=== PATIENT | male | born 1960 | race African-American/Black ===

== ENCOUNTER 2017-03-09 20:08 | Emergency (ER) | payer OTHER ==
[~2017-03-09 20:08] MED LIST: AMLO10TA80 PO; CLON1TAB4 PO; DONE5TAB33 PO; PREDNISOLONE ACETATE OP; [UNRECOGNIZED DRUG - OTHER]; ciclopirox
== END 2017-03-09 22:22 | disposition left against medical advice (07) ==
LOC: ER 22:17
DX: R09.89 Other specified symptoms and signs involving the circulatory and respiratory systems (principal); Z53.21 Procedure and treatment not carried out due to patient leaving prior to being seen by health care provider

== ENCOUNTER 2018-08-28 20:39 | Inpatient (IN) | payer OTHER ==
[~2018-08-28] VITALS: Ht 167.6 cm; Wt 86.2 kg
[~2018-08-28 20:39] MED LIST changes: +ASPI-1158 PO; +CLON1TAB12 PO; -CLON1TAB4 PO; +METF-414 MT; +XALAO EACHEYE; -[UNRECOGNIZED DRUG - OTHER]; -ciclopirox
[2018-08-28 21:02] LABS: BASOPHILS % 1.4 % (0.0-2.0); EOSINOPHILS % 0.4 % (0.0-5.0); HEMATOCRIT. 47.3 % (42.0-52.0); HEMOGLOBIN. 15.7 g/dL (14.0-18.0); LYMPHOCYTES % 32.3 % (20.0-50.0); MEAN CORPUSCULAR HEMOGLOBIN 32.8 pg (28.0-32.0); MEAN CORPUSCULAR VOLUME 98.8 fL (80.0-94.0); MEAN PLATELET VOLUME 9.2 fl (7.4-10.4); MONOCYTES % 6.8 % (2.0-8.0); NEUTROPHILS % 59.1 % (40.0-76.0); PLATELET 221 x1000/uL (130-400); RED BLOOD CELL COUNT 4.79 mill/uL (4.7-6.1); RED CELL DISTRIBUTION WIDTH 13.8 % (11.6-14.6)
[2018-08-28 21:08] LABS: CHLORIDE 109 mEq/L (98-107)
[2018-08-28 21:09] LABS: PROTHROMBIN TIME 10.5 sec (9.6-11.0)
[2018-08-28 21:13] LABS: ETHANOL BLOOD < 10 mg/dL
[2018-08-28 21:16] LABS: LDL CHOLESTEROL 129 mg/dL (5-100)
[2018-08-28 21:52] LABS: CLARITY URINE CLEAR (CLEAR); COLOR URINE YELLOW (YELLOW); KETONES URINE TRACE (NEGATIVE); LEUKOCYTE ESTERASE URINE NEGATIVE (NEGATIVE); NITRITE URINE NEGATIVE (NEGATIVE); OCCULT BLOOD URINE NEGATIVE (NEGATIVE); PH URINE 5.5 (4.5-8.0); PROTEIN URINE NEGATIVE (NEGATIVE); SPECIFIC GRAVITY URINE 1.023 (1.005-1.030)
[2018-08-28 22:06] LABS: *COCAINE SCREEN URINE NEGATIVE (NEGATIVE); METHADONE URINE SCREEN NEGATIVE (NEGATIVE); OPIATES URINE SCREEN NEGATIVE (NEGATIVE)
[2018-08-28 22:07] LABS: *AMPHETAMINES SCREEN URINE NEGATIVE (NEGATIVE); *BARBITURATES SCREEN URINE NEGATIVE (NEGATIVE); *BENZODIAZEPINES SCREEN URINE NEGATIVE (NEGATIVE); CANNABINOID URINE SCREEN NEGATIVE (NEGATIVE); PHENCYCLIDINE URINE SCREEN NEGATIVE (NEGATIVE)
[2018-08-28] MEDS ORDERED: ASPIRIN 325MG EC TABLET PO ONE (22:45)
[2018-08-28] MEDS ORDERED: ONDANSETRON HCL 4MG/2ML INJ IV PRN (23:15)
[2018-08-28] MEDS ORDERED: ACETAMINOPHEN 325MG TABLET PO PRN (23:15)
[2018-08-28] MEDS ORDERED: DOCUSATE SODIUM 100MG CAPSULE PO PRN (23:15)
[2018-08-28] MEDS ORDERED: HYDROCODONE/ACETAMINOPHEN 5/325MG TABLET PO PRN (23:15)
[2018-08-29] VITALS (7 sets, daily range): BP systolic 109–134; BP diastolic 73–91
[2018-08-29] MEDS ORDERED: TAMS-11 PO (01:56)
[2018-08-29] MEDS ORDERED: DONE10TA11 PO (01:56)
[2018-08-29] MEDS ORDERED: TIMO1DRO2 OP (01:56)
[2018-08-29] MEDS ORDERED: LATA5DRO EACHEYE (01:56)
[2018-08-29] MEDS ORDERED: NEPT50 GT (01:56)
[2018-08-29] MEDS ORDERED: DEXTROSE 50% WATER 50ML SYRINGE IV PRN (02:15)
[2018-08-29] MEDS: INSULIN LISPRO 100 UNITS/ML SUBCUT SCH ×4 (05:58→20:47)
[2018-08-29] MEDS: BLOOD SUGAR DIAGNOSTIC STRIP TEST SCH ×4 (05:58→20:46)
[2018-08-29 06:25] LABS: BASOPHILS % 0.5 % (0.0-2.0); EOSINOPHILS % 1.3 % (0.0-5.0); HEMATOCRIT. 42.9 % (42.0-52.0); HEMOGLOBIN. 14.5 g/dL (14.0-18.0); LYMPHOCYTES % 44.5 % (20.0-50.0); MEAN CORPUSCULAR HEMOGLOBIN 33.5 pg (28.0-32.0); MEAN CORPUSCULAR VOLUME 98.9 fL (80.0-94.0); MEAN PLATELET VOLUME 9.6 fl (7.4-10.4); MONOCYTES % 10.6 % (2.0-8.0); NEUTROPHILS % 43.1 % (40.0-76.0); PLATELET 220 x1000/uL (130-400); RED BLOOD CELL COUNT 4.34 mill/uL (4.7-6.1); RED CELL DISTRIBUTION WIDTH 13.5 % (11.6-14.6)
[2018-08-29 07:01] LABS: CREATINE KINASE 84 IU/L (39-308)
[2018-08-29 07:02] LABS: CREATINE KINASE MB FRACTION 1.3 ng/mL (0.5-3.6)
[2018-08-29 07:16] LABS: CHLORIDE 109 mEq/L (98-107)
[2018-08-29 07:24] LABS: LDL CHOLESTEROL 127 mg/dL (5-100)
[2018-08-29 07:26] LABS: HDL CHOLESTEROL 42 mg/dL (40-59)
[2018-08-29] MEDS: ENOXAPARIN 40MG/0.4ML SYR SUBCUT SCH (08:49)
[2018-08-29 16:42] LABS: CREATINE KINASE 87 IU/L (39-308)
[2018-08-29 16:43] LABS: CREATINE KINASE MB FRACTION 1.1 ng/mL (0.5-3.6)
[2018-08-30] VITALS: BP 152/87
[2018-08-30 04:00] VITALS: BP 132/98
[2018-08-30] MEDS: BLOOD SUGAR DIAGNOSTIC STRIP TEST SCH ×3 (06:47→16:45)
[2018-08-30] MEDS: INSULIN LISPRO 100 UNITS/ML SUBCUT SCH ×3 (06:48→17:15)
[2018-08-30 08:00] VITALS: BP 120/84
[2018-08-30] MEDS: ENOXAPARIN 40MG/0.4ML SYR SUBCUT SCH (10:22)
[2018-08-30 12:00] VITALS: BP 125/86
[2018-08-30 15:24] LABS: BASOPHILS % 0.8 % (0.0-2.0); EOSINOPHILS % 0.8 % (0.0-5.0); HEMATOCRIT. 46.1 % (42.0-52.0); HEMOGLOBIN. 15.7 g/dL (14.0-18.0); LYMPHOCYTES % 35.4 % (20.0-50.0); MEAN CORPUSCULAR HEMOGLOBIN 33.2 pg (28.0-32.0); MEAN CORPUSCULAR VOLUME 97.4 fL (80.0-94.0); MONOCYTES % 12.1 % (2.0-8.0); NEUTROPHILS % 50.9 % (40.0-76.0); PLATELET 219 x1000/uL (130-400); RED BLOOD CELL COUNT 4.73 mill/uL (4.7-6.1); RED CELL DISTRIBUTION WIDTH 13.4 % (11.6-14.6)
[2018-08-30 15:28] LABS: CHLORIDE 108 mEq/L (98-107)
[2018-08-30 15:50] LABS: FOLIC ACID (FOLATE) SERUM 16.2 ng/mL (>5.38)
[2018-08-30 16:00] VITALS: BP 107/77
[2018-08-30 20:00] VITALS: BP 118/96
== END 2018-08-30 21:35 | disposition left against medical advice (07) | DRG 52 ==
LOC: ER 21:11 → ENRESERV 23:35 → 5WST 08-29 00:23
PROVIDERS: ADMIT Internal Medicine; ATTEND Internal Medicine
DX: G93.40 Encephalopathy, unspecified (principal); E11.39 Type 2 diabetes mellitus with other diabetic ophthalmic complication; Z53.21 Procedure and treatment not carried out due to patient leaving prior to being seen by health care provider; I10 Essential (primary) hypertension; H40.89 Other specified glaucoma; I69.351 Hemiplegia and hemiparesis following cerebral infarction affecting right dominant side; Z87.820 Personal history of traumatic brain injury; Z79.84 Long term (current) use of oral hypoglycemic drugs
CPT/HCPCS: 36415; 70551; 71045; 80048; 80061; 80305; 80320; 82550; 82553; 82607; 82746; 82962; 83721; 83735; 84443; 84484; 93005; 93970; 97162; 97166; 97530; 97535; 99291; J1650; G0480

== ENCOUNTER 2019-01-21 11:59 | Emergency (ER) | payer OTHER ==
[~2019-01-21] VITALS: Ht 177.8 cm; Wt 73.0 kg
[~2019-01-21 11:59] MED LIST changes: +DONE10TA11 PO; -DONE5TAB33 PO; +LATA5DRO EACHEYE; +NEPT50 GT; -PREDNISOLONE ACETATE OP; +TAMS-11 PO; +TIMO1DRO2 OP
[2019-01-21] MEDS ORDERED: SODIUM CHLORIDE 0.9% 1,000 ML IV ONE (12:51)
[2019-01-21 13:12] LABS: EOSINOPHILS % 5.2 % (0.0-5.0); HEMOGLOBIN. 15.2 g/dL (14.0-18.0); LYMPHOCYTES % 42.7 % (20.0-50.0); MEAN CORPUSCULAR HEMOGLOBIN 33.5 pg (28.0-32.0); MEAN CORPUSCULAR VOLUME 99.1 fL (80.0-94.0); MEAN PLATELET VOLUME 9.1 fl (7.4-10.4); MONOCYTES % 10.2 % (2.0-8.0); NEUTROPHILS % 40.9 % (40.0-76.0); PLATELET 213 x1000/uL (130-400); RED BLOOD CELL COUNT 4.54 mill/uL (4.7-6.1); RED CELL DISTRIBUTION WIDTH 13.7 % (11.6-14.6)
[2019-01-21 13:16] LABS: CHLORIDE 110 mEq/L (98-107)
[2019-01-21 13:27] LABS: PROTHROMBIN TIME 10.3 sec (9.6-11.0)
[2019-01-21] MEDS ORDERED: ASPIRIN 325MG EC TABLET PO ONE (14:30)
[2019-01-21 18:25] VITALS: BP 122/85
== END 2019-01-21 18:34 | disposition short-term general hospital (02) ==
LOC: ER 11:59
DX: I63.9 Cerebral infarction, unspecified (principal); I10 Essential (primary) hypertension; Z79.82 Long term (current) use of aspirin; Z79.899 Other long term (current) drug therapy
CPT/HCPCS: 36415; 70450; 71045; 80053; 82962; 83880; 84484; 85025; 85610; 85730; 86850; 86900; 86901; 93005; 99285; J7030

== ENCOUNTER 2023-09-19 11:40 | Emergency (ER) | payer OTHER ==
[~2023-09-19] VITALS: Ht 177.8 cm; Wt 82.0 kg
[~2023-09-19 11:40] MED LIST changes: -ASPI-1158 PO; +ASPI-1406 PO; +METH50TA6 GT; -NEPT50 GT
[2023-09-19 11:44] VITALS: O2SAT 98
[2023-09-19] MEDS: LEVETIRACETAM 1000MG PREMIX 100 ML IV ONE (12:23)
[2023-09-19 12:30] LABS: CALCIUM 9.2 mg/dL (8.7-10.4); CARBON DIOXIDE 22 mEq/L (21-32); CHLORIDE 109 mEq/L (98-107); POTASSIUM 3.9 mEq/L (3.5-5.1); SODIUM 138 mEq/L (136-145)
[2023-09-19 12:35] LABS: CREATININE 1.2 mg/dL (0.6-1.3); UREA NITROGEN BLOOD 9 mg/dL (9-23)
[2023-09-19 12:53] LABS: BASOPHILS % 0.2 % (0.0-2.0); DIFFERENTIAL COMMENT 0; EOSINOPHILS % 0.6 % (0.0-5.0); HEMATOCRIT. 51.6 % (42.0-52.0); HEMOGLOBIN. 16.3 g/dL (14.0-18.0); LYMPHOCYTES % 20.1 % (20.0-50.0); MEAN CORPUSCULAR HGB CONC 31.7 g/dL (31.0-37.0); MEAN PLATELET VOLUME 9.4 fl (7.4-10.4); MONOCYTES % 7.5 % (2.0-8.0); NEUTROPHILS % 71.6 % (40.0-76.0); PLATELET 176 x1000/uL (130-400); RED BLOOD CELL COUNT 4.96 mill/uL (4.7-6.1); WHITE BLOOD COUNT 8.2 x1000/uL (4.5-11.0)
[2023-09-19 13:04] LABS: GLUCOSE 241 mg/dL (70-105)
[2023-09-19 13:05] LABS: ETHANOL BLOOD < 10 mg/dL (<10)
[2023-09-19] MEDS: ONDANSETRON HCL 4MG/2ML INJ IV STA (14:12)
[2023-09-19 16:16] VITALS: BP 104/78; PULSE 71; RESP 16; TEMP 98.9
== END 2023-09-19 16:21 | disposition short-term general hospital (02) ==
LOC: ER 11:40 → EDBEDREQ 14:01 → EDBEDREQTM 14:01 → CANBEDREQ 14:51 → ER 16:21
DX: R56.9 Unspecified convulsions (principal); I10 Essential (primary) hypertension; Z79.899 Other long term (current) drug therapy; Z86.73 Personal history of transient ischemic attack (TIA), and cerebral infarction without residual deficits; Z98.890 Other specified postprocedural states
CPT/HCPCS: 80048; 80320; 85025; 36415; 71045; 70450; 96365; 96375; 99285; J1953; J2405; G0480